=== PATIENT | male | born 1995 | race African-American/Black ===

== ENCOUNTER 2018-08-07 08:51 | Emergency (ER) | payer SELFPAY | END 2018-08-07 09:50 | disposition home or self-care (01) | LOC: ERS 08:51 | DX: J03.90 Acute tonsillitis, unspecified (principal) | CPT/HCPCS: 87081; 87430; 99283 ==

== ENCOUNTER 2018-10-11 09:56 | Emergency (ER) | payer SELFPAY ==
[2018-10-11 11:40] LABS: Bilirubin Negative (Negative); Blood, Urine Negative (Negative); Clarity CLEAR (Clear); Glucose, Urine (Dipstick) Negative (Negative); Leukocyte Negative (Negative); Nitrite Negative (Negative); Protein, Urine (Dipstick) 30 mg/dL (Neg-Trace); Specific Gravity, Urine 1.028 (1.002-1.036)
[2018-10-11 11:41] LABS: Pathc Cast-AUWi Flag 2.03 (0-2.49)
[2018-10-11 11:55] LABS: Hyaline Casts/LPF 0-3 HYALINE CAST LPF (0-3 Hyaline)
[2018-10-11] MEDS ORDERED: cefTRIAXone\\ROCEPHIN 250 MG VIAL ONE (11:55)
[2018-10-11] MEDS ORDERED: Lidocaine 1% (PF) 30 ML VIAL ONE (11:55)
[2018-10-11 11:56] LABS: Bacteria/HPF Rare-Few HPF (None Seen)
== END 2018-10-11 12:18 | disposition home or self-care (01) ==
LOC: ERS 09:56
DX: N41.9 Inflammatory disease of prostate, unspecified (principal); B20 Human immunodeficiency virus [HIV] disease
CPT/HCPCS: 81003; 81015; 87086; 87491; 87591; 96372; J0696; J2001